=== PATIENT | male | born 1990 | race Asian ===

== ENCOUNTER 2022-06-30 21:50 | Emergency (ER) | payer BC ==
[~2022-06-30] VITALS: Ht 175.3 cm; Wt 112.5 kg
[2022-06-30 22:05] VITALS: BP 139/90
--- NOTE | 2022-06-30 22:08 | NUR ---
TO LOBBY A/W BED AMBULATORY
[2022-06-30 22:10] VITALS: BP 139/90
[2022-06-30] MEDS ORDERED: LID5T TP (23:33)
[2022-06-30] MEDS ORDERED: IBUP-2213 PO (23:33)
[2022-06-30] MEDS ORDERED: KETOROLAC 15 MG/ML VIAL IM ONE (23:35)
[2022-06-30] MEDS ORDERED: LIDOCAINE 5% 1 EA PATCH TP ONE (23:35)
--- NOTE | 2022-07-01 00:46 | NUR ---
Patient discharged with v/s stable. Written and verbal after care instructions given and explained. Patient alert, oriented and verbalized understanding of instructions. Ambulatory with steady gait. All questions addressed prior to discharge. ID band removed. Patient advised to follow up with PMD. Rx of MOTRIN AND LIDODERM given. Patient educated on indication of medication including possible reaction and side effects. Opportunity to ask questions provided and answered.
[2022-07-01] MEDS ORDERED: LID5T TP (00:47)
[2022-07-01] MEDS ORDERED: IBUP-2213 PO (00:47)
== END 2022-07-01 00:46 | disposition home or self-care (01) ==
LOC: MED 21:50
DX: S20.212A Contusion of left front wall of thorax, initial encounter (principal); Z98.890 Other specified postprocedural states; Z79.1 Long term (current) use of non-steroidal anti-inflammatories (NSAID); Z79.899 Other long term (current) drug therapy; Z88.0 Allergy status to penicillin; W01.0XXA Fall on same level from slipping, tripping and stumbling without subsequent striking against object, initial encounter; Y92.89 Other specified places as the place of occurrence of the external cause; Y93.89 Activity, other specified; Y99.8 Other external cause status
CPT/HCPCS: 71101; 96372; 99283; J1885